=== PATIENT | male | born 1970 | race Caucasian/White ===

== ENCOUNTER → 2018-06-21 | Outpatient (CLI) | payer OTHER ==
--- NOTE | 2018-06-22 15:41 | P.ARTDOP ---
Arterial Doppler LOWER EXTREMITY ARTERIAL DOPPLER: DATE OF SERVICE: 06/21/2018 Reason for study: Claudication. Doppler waveforms: Multiphasic throughout. Pulse volume recording: . Pressure gradients: None. Ankle-brachial indices: Greater than 1 on the right. Toe pressures: 104 on the right, [] on the left Impression: Normal study post-left leg amputation.
== END | disposition home or self-care (01) ==
LOC: RADUSWWP 13:37
PROVIDERS: ATTEND Internal Medicine
DX: M79.661 Pain in right lower leg (principal); Z89.612 Acquired absence of left leg above knee; Z91.041 Radiographic dye allergy status
CPT/HCPCS: 93922